=== PATIENT | female | born 1945 | race Hispanic/Latino ===

== ENCOUNTER 2019-08-06 14:58 | Inpatient (IN) | payer MEDICARE ==
[~2019-08-06] VITALS: Ht 157.5 cm; Wt 57.9 kg
[2019-08-06 20:06] VITALS: BP 111/61
--- NOTE | 2019-08-06 21:00 | NUR ---
PATIENT TRANSFER FROM [facility]. PATIENT HERE FOR CABG. PATIENT AOX3, GOOD, STABLE, DENIES ANY SHORTNESS OF BREATH AND OR CHEST PAIN. FAMILY AT BESIDE, CALL LIGHT WITH IN REACH. MD MORTENSEN MADE AWARE OF PATIENT ARRIVAL. NEW ORDERS RECEIVED WILL CARRY OUT.
[2019-08-06 23:11] LABS: HEMATOCRIT 36.3 % (36-48); MEAN CORPUSCULAR HEMOGLOBIN 30.9 pg (27.0-33.0); MEAN CORPUSCULAR HGB CONC 33.1 g/dL (32.0-36.0); MEAN CORPUSCULAR VOLUME 93.6 fL (79-99); PLATELET COUNT (AUTO) 125 K/uL (130-400); RED BLOOD CELL COUNT(AUTO) 3.88 MIL/uL (4.00-5.50); RED CELL DISTRIBUTION WIDTH 13.6 % (11.0-15.5); WHITE BLOOD COUNT (AUTO) 8.8 K/uL (4.8-10.8)
[2019-08-06 23:29] LABS: HEMOGLOBIN A1C 6.1 % (4.0-6.0)
[2019-08-06 23:31] LABS: INR 1.02 (0.85-1.15); PARTIAL THROMBOPLASTIN TIME 29.4 SEC (26.3-35.5); PROTHROMBIN TIME 10.7 SEC (9.6-11.6)
[2019-08-06 23:39] LABS: BILIRUBIN,TOTAL 0.7 mg/dL (0.2-1.0); CREATININE 0.7 mg/dL (0.5-1.5); POTASSIUM 3.4 mmol/L (3.5-5.1); TOTAL PROTEIN, SERUM 6.4 g/dL (6.0-8.3)
[2019-08-06 23:42] LABS: B-TYPE NATRIURETIC PEPTIDE 618 pg/mL (0-100)
[2019-08-06 23:44] LABS: TROPONIN I 1.18 ng/mL (0.00-0.06)
[2019-08-06 23:59] VITALS: BP 111/62
[2019-08-07] VITALS (58 sets, daily range): BP systolic 86–217; BP diastolic 38–215
[2019-08-07] MEDS ORDERED: NOREPINEPHRINE BITARTRATE 8 MG in DEXTROSE 5%-WATER 250 ML IV PRN (06:45)
[2019-08-07] MEDS ORDERED: AMINOCAPROIC ACID 15,000 MG in SODIUM CHLORIDE 0.9% 500ML 420 ML IV PRN (06:45)
[2019-08-07] MEDS ORDERED: EPINEPHRINE 10 MG in SODIUM CHLORIDE 0.9% 240 ML IV PRN (06:45)
[2019-08-07] MEDS ORDERED: POTASSIUM CHLORIDE 20 MEQ/100 ML BAG IV SCH (07:30)
[2019-08-07] MEDS ORDERED: LIDOCAINE HCL-MPF 1% 2ML VIAL IV SCH (07:30)
[2019-08-07] MEDS ORDERED: PAPAVERINE HCL 30 MG/ML 2ML VIAL ONE (07:32)
[2019-08-07] MEDS ORDERED: CEFAZOLIN SODIUM 1 GM VIAL ONE (07:32)
[2019-08-07] MEDS ORDERED: NITROGLYCERIN 50 MG/D5% WATER 1 BOT ONE (07:55)
[2019-08-07] MEDS ORDERED: POTASSIUM CHLORIDE 20MEQ/100ML 100 ML IV SCH (08:00)
[2019-08-07] MEDS ORDERED: LIDOCAINE HCL-MPF 1% 2ML VIAL IJ PRN (08:00)
--- NOTE | 2019-08-07 09:05 | NUR ---
TO O.R. VIA BED ACCOMPANIED BY HOLDING AREA STAFF AND FAMILY MEMBERS AT BEDSIDE. HOLDING AREA STAFF INFORMED OF PT. WITH LOOSE TEETH, VERBALIZED UNDERSTANDING AND WILL NOTIFY DR. RAYO. BELONGINGS TAKEN BY PT.'S FAMILY MEMBERS.
[2019-08-07] MEDS ORDERED: SODIUM CHLORIDE 0.9% 1000ML 1,000 ML IV ONE (09:12)
[2019-08-07] MEDS: CEFAZOLIN SODIUM 1 GM VIAL IVP PRN ×2 (09:24→09:55)
[2019-08-07] MEDS ORDERED: ESMOLOL HCL 10 MG/ML 10 ML VIAL ONE (09:39)
[2019-08-07] MEDS ORDERED: PROTAMINE SULFATE 10 MG/ML 25ML VIAL IV ONE (09:39)
[2019-08-07] MEDS ORDERED: PROPOFOL 10 MG/ML 20ML VIAL IV ONE (09:39)
[2019-08-07] MEDS ORDERED: ROCURONIUM 10MG/1ML SYR 10 MG/ML ML ONE (09:39)
[2019-08-07] MEDS ORDERED: EPINEPHRINE 1 MG/ML AMPULE ONE (09:39)
[2019-08-07] MEDS ORDERED: HEPARIN SODIUM 1000UNIT/ML 10ML VIAL ONE (09:39)
[2019-08-07] MEDS ORDERED: NOREPINEPHRINE BITARTRATE 1 MG/1 ML ML IV ONE (09:39)
[2019-08-07] MEDS ORDERED: AMINOCAPROIC ACID 250 MG/ML 20 ML VIAL IV ONE (09:39)
[2019-08-07] MEDS ORDERED: LIDOCAINE PF 2% 5ML ABBOJECT ONE (09:39)
[2019-08-07] MEDS ORDERED: ETOMIDATE 2 MG/ML 10 ML VIAL ONE (09:40)
[2019-08-07] MEDS ORDERED: FENTANYL CITRATE PF 50 MCG/1 ML 5ML AMP IV ONE ×3 (09:40→11:26)
[2019-08-07] MEDS ORDERED: GLYCOPYRROLATE 1 MG/5 ML SYRINGE ONE (09:43)
[2019-08-07] MEDS ORDERED: AMIODARONE HCL 50 MG/ML 3 ML VIAL ONE (09:43)
[2019-08-07 10:40] LABS: ABG BASE EXCESS -0.6 mmol/L (-2.0-3.0); ABG HCO3 23.6 mmol/L (21.0-28.0); ABG OXYGEN SATURATION 99.3 % (95.0-99.0); ABG PCO2 37 mmHg (32-45)
[2019-08-07] MEDS ORDERED: OCTYL 2-CYANOACRYLATE 1 EACH TP ONE (11:15)
[2019-08-07 11:38] LABS: ABG BASE EXCESS -0.3 mmol/L (-2.0-3.0); ABG HCO3 22.5 mmol/L (21.0-28.0); ABG OXYGEN SATURATION 98.8 % (95.0-99.0); ABG PCO2 30 mmHg (32-45)
[2019-08-07] MEDS ORDERED: SODIUM CHLORIDE 0.9% 500ML 500 ML IV SCH (11:40)
[2019-08-07] MEDS ORDERED: POTASSIUM CHLORIDE 20MEQ/100ML 200 ML IV ONE (11:40)
[2019-08-07] MEDS ORDERED: ALBUMIN (HUMAN) 5% 250 ML IV PRN (11:45)
[2019-08-07] MEDS ORDERED: SODIUM CHLORIDE 0.9% 250 ML IV PRN (11:45)
[2019-08-07] MEDS ORDERED: GLUCAGON 1MG KIT 1 MG ML IM PRN (11:45)
[2019-08-07] MEDS ORDERED: ACETAMINOPHEN 325 MG TAB PO PRN (11:45)
[2019-08-07] MEDS ORDERED: SODIUM CHLORIDE 0.9% 1000ML 1,000 ML IV SCH (11:45)
[2019-08-07] MEDS ORDERED: NITROGLYCERIN 50 MG/D5% WATER 250 BOT IV SCH (11:45)
[2019-08-07] MEDS ORDERED: MORPHINE SULFATE 2 MG/ML 1ML SYG IV PRN (11:45)
[2019-08-07] MEDS ORDERED: MORPHINE SULFATE 4 MG/1ML SYG IV PRN (11:45)
[2019-08-07] MEDS ORDERED: NOREPINEPHRINE 4MG/NS 250ML 250 ML IV PRN (11:45)
[2019-08-07] MEDS ORDERED: PROPOFOL 1000 MG/100 ML 100 ML IV PRN (11:45)
[2019-08-07] MEDS ORDERED: SODIUM CHLORIDE 0.9% 10 ML VIAL IVP PRN (11:45)
[2019-08-07] MEDS ORDERED: ACETAMINOPHEN 650 MG SUPPOSITORY RC PRN (11:45)
[2019-08-07] MEDS ORDERED: DEXTROSE 50%-WATER 50 ML DISP.SYRIN IV PRN (11:45)
[2019-08-07] MEDS ORDERED: TRAMADOL HCL 50 MG TABLET PO PRN ×2 (11:45)
[2019-08-07] MEDS ORDERED: POTASSIUM PHOS 15 mMOL+NS250ML 250 ML IV PRN (11:45)
[2019-08-07] MEDS ORDERED: ONDANSETRON HCL 4 MG/2 ML VIAL IV PRN (11:45)
[2019-08-07] MEDS ORDERED: AMINOCAPROIC ACID 15,000 MG in SODIUM CHLORIDE 0.9% 250 ML IV SCH (11:45)
[2019-08-07] MEDS ORDERED: EPINEPHRINE 10 MG in DEXTROSE 5%-WATER 250 ML IV PRN (11:45)
[2019-08-07] MEDS ORDERED: SODIUM BICARB 50MEQ 50ML VIAL ONE (11:57)
[2019-08-07] MEDS ORDERED: POTASSIUM CHLORIDE 20MEQ/100ML 100 ML IV ONE ×2 (11:58→11:59)
[2019-08-07 12:28] LABS: ABG BASE EXCESS -4.9 mmol/L (-2.0-3.0); ABG HCO3 19.1 mmol/L (21.0-28.0); ABG OXYGEN SATURATION 98.5 % (95.0-99.0); ABG PCO2 31 mmHg (32-45)
--- NOTE | 2019-08-07 12:46 | NUR ---
MAGALIE PLAN PATIENT DOWN FOR CABG. PENDING IA ENRIKE WILL CONTINUE TO FOLLOW. Addendum: 08/07/19 at 1247 by GLADYS RUSSELL RN CM Amended: Links added.
[2019-08-07 13:24] LABS: ABG BASE EXCESS -6.7 mmol/L (-2.0-3.0); ABG HCO3 17.8 mmol/L (21.0-28.0); ABG OXYGEN SATURATION 95.3 % (95.0-99.0); ABG PCO2 32 mmHg (32-45)
[2019-08-07 13:33] LABS: MEAN CORPUSCULAR HEMOGLOBIN 30.4 pg (27.0-33.0); MEAN CORPUSCULAR HGB CONC 33.1 g/dL (32.0-36.0); MEAN CORPUSCULAR VOLUME 91.9 fL (79-99); PLATELET COUNT (AUTO) 94 K/uL (130-400); RED BLOOD CELL COUNT(AUTO) 3.81 MIL/uL (4.00-5.50); RED CELL DISTRIBUTION WIDTH 14.6 % (11.0-15.5); WHITE BLOOD COUNT (AUTO) 15.6 K/uL (4.8-10.8)
--- NOTE | 2019-08-07 13:50 | NUR ---
ATTEMPTING TO OPEN EYES NODS HEAD "YES" WHEN ASKED IF SHE CAN HEAR ME. OPENED YES TO COMMAND. SMALL MOVEMENTS NOTED TO HANDS AND BILATERAL TOES ON COMMAND. ORIENTED TO TIME AND PLACE. WILL CONTINUE TO MONITOR.
[2019-08-07 13:53] LABS: CREATININE 0.7 mg/dL (0.5-1.5); MAGNESIUM 1.2 mg/dL (1.80-2.40); PHOSPHORUS 4.9 mg/dL (2.5-4.9)
[2019-08-07 13:59] LABS: INR 1.35 (0.85-1.15); PARTIAL THROMBOPLASTIN TIME 31.2 SEC (26.3-35.5)
[2019-08-07 14:04] LABS: POTASSIUM 2.9 mmol/L (3.5-5.1)
--- NOTE | 2019-08-07 14:30 | NUR ---
EASILY AROUSABLE. EYES OPEN TO VERBAL STIMULI. MOVING ALL 4 EXTREMITIES TO COMMAND. WILL CONTINUE TO WEAN VENT AND DRIPS PER CVR PROTOCOL
[2019-08-07 14:44] LABS: ABG BASE EXCESS 5.1 mmol/L (-2.0-3.0); ABG HCO3 28.6 mmol/L (21.0-28.0); ABG OXYGEN SATURATION 97.3 % (95.0-99.0); ABG PCO2 38 mmHg (32-45)
[2019-08-07] MEDS: MAGNESIUM 2GM PREMIX 50ML 50 ML IV PRN (16:41)
[2019-08-07] MEDS: SODIUM BICARB 50MEQ 50ML VIAL IV PRN ×2 (16:42→17:16)
[2019-08-07] MEDS: CEFAZOLIN SODIUM 1 GM VIAL IV SCH (16:42)
[2019-08-07] MEDS: POTASSIUM CHLORIDE 20MEQ/100ML 100 ML IV PRN ×4 (16:43→23:52)
[2019-08-07] MEDS: INSULIN REGULAR, HUMAN 3ML 100 UNIT in SODIUM CHLORIDE 0.9% 99 ML IV SCH ×2 (16:46)
[2019-08-07] MEDS: NOREPINEPHRINE BITARTRATE 8 MG/NS 250ML IV SCH ×2 (16:50)
[2019-08-07 17:04] LABS: ABG BASE EXCESS -1.5 mmol/L (-2.0-3.0); ABG HCO3 23.2 mmol/L (21.0-28.0); ABG OXYGEN SATURATION 97.1 % (95.0-99.0); ABG PCO2 39 mmHg (32-45)
[2019-08-07] MEDS: CALCIUM GLUCONATE 1 GM in SODIUM CHLORIDE 0.9% 50 ML IV PRN ×2 (20:03→22:16)
[2019-08-07] MEDS: FAMOTIDINE/PF 20 MG/2 ML VIAL IV SCH (20:49)
[2019-08-07] MEDS: ATORVASTATIN CALCIUM 40 MG TABLET PO SCH (20:50)
[2019-08-07] MEDS ORDERED: ATORVASTATIN CALCIUM 20 MG TABLET PO SCH (21:00)
[2019-08-07 21:51] LABS: ABG BASE EXCESS 5.7 mmol/L (-2.0-3.0); ABG HCO3 30.1 mmol/L (21.0-28.0); ABG OXYGEN SATURATION 97.8 % (95.0-99.0); ABG PCO2 43 mmHg (32-45)
[2019-08-07] MEDS ORDERED: ALBUMIN (HUMAN) 5% 250 ML IV ONE (23:18)
[2019-08-07 23:50] LABS: ABG BASE EXCESS 1.9 mmol/L (-2.0-3.0); ABG HCO3 25.4 mmol/L (21.0-28.0); ABG OXYGEN SATURATION 97.9 % (95.0-99.0); ABG PCO2 36 mmHg (32-45)
[2019-08-08] VITALS (68 sets, daily range): BP systolic 59–140; BP diastolic 31–96
[2019-08-08] MEDS: CEFAZOLIN SODIUM 1 GM VIAL IV SCH ×2 (00:58→08:35)
[2019-08-08 01:26] LABS: ABG BASE EXCESS 7.1 mmol/L (-2.0-3.0); ABG HCO3 31.8 mmol/L (21.0-28.0); ABG OXYGEN SATURATION 97.8 % (95.0-99.0); ABG PCO2 46 mmHg (32-45)
[2019-08-08] MEDS: NOREPINEPHRINE BITARTRATE 8 MG/NS 250ML IV SCH ×2 (02:44)
[2019-08-08 04:26] LABS: ABG BASE EXCESS 8.3 mmol/L (-2.0-3.0); ABG HCO3 30.4 mmol/L (21.0-28.0); ABG OXYGEN SATURATION 98.9 % (95.0-99.0); ABG PCO2 34 mmHg (32-45)
[2019-08-08 04:44] LABS: HEMATOCRIT 30.5 % (36-48); MEAN CORPUSCULAR HEMOGLOBIN 29.7 pg (27.0-33.0); MEAN CORPUSCULAR HGB CONC 33.4 g/dL (32.0-36.0); MEAN CORPUSCULAR VOLUME 88.7 fL (79-99); PLATELET COUNT (AUTO) 72 K/uL (130-400); RED BLOOD CELL COUNT(AUTO) 3.44 MIL/uL (4.00-5.50); RED CELL DISTRIBUTION WIDTH 15.9 % (11.0-15.5); WHITE BLOOD COUNT (AUTO) 14.6 K/uL (4.8-10.8)
[2019-08-08 04:57] LABS: INR 1.15 (0.85-1.15); PARTIAL THROMBOPLASTIN TIME 28.9 SEC (26.3-35.5)
[2019-08-08 05:04] LABS: CREATININE 0.8 mg/dL (0.5-1.5); MAGNESIUM 1.5 mg/dL (1.80-2.40); PHOSPHORUS 1.5 mg/dL (2.5-4.9); POTASSIUM 3.8 mmol/L (3.5-5.1)
[2019-08-08] MEDS: CALCIUM GLUCONATE 1 GM in SODIUM CHLORIDE 0.9% 50 ML IV PRN ×3 (05:48→21:03)
[2019-08-08] MEDS: MAGNESIUM 2GM PREMIX 50ML 50 ML IV PRN (05:48)
[2019-08-08] MEDS: POTASSIUM CHLORIDE 20MEQ/100ML 100 ML IV PRN (05:48)
--- NOTE | 2019-08-08 06:00 | NUR ---
EXTUBATION ATTEMPTS HAVE TRIED MULTIPLE TIMES TO WEAN PT OFF VENTILATOR PER PROTOCOL. PT RESPONDS TO VERBAL STIMULI, BUT DOES NOT FOLLOW COMMANDS. TIDAL VOLUMES ARE MET; O2 SATURATIONS ARE MAINTAINED, BUT PT DOES NOT BREATHE OVER SET RESPIRATORY RATE. HAVE ATTEMPTED TO MAINTAIN PT AWAKE, BUT PT RESPONDS FOR A FEW MINUTES AND CLOSES EYES.
[2019-08-08] MEDS ORDERED: PHARMACY COMMUNICATION MISC SCH (06:30)
[2019-08-08] MEDS: ASPIRIN 325MG EC TAB 325 MG TABLET.DR PO SCH (07:29)
--- NOTE | 2019-08-08 08:25 | NUR ---
PT IS RESPONSIVE AND FOLLOWS COMMANDS- I HAVE ATTEMPTED TO WEAN VENT TO RATE OF 4 PER PROTOCOL.SHE DOES NOT STAY AWAKE AND IS NOT OVERBREATHING VENT. SHE IS SOMNOLENT AND APNEIC. WILL CONTINUE TO TRY AND WEAN PER PROTOCOL. DAUGHTER Chanell ROBISON AT BEDSIDE. INFORMED OF CURRENT STATUS AND P.O.C... PT HEMODYNAMICALLY STABLE.
[2019-08-08] MEDS: FAMOTIDINE/PF 20 MG/2 ML VIAL IV SCH ×2 (08:35→21:02)
[2019-08-08] MEDS: FUROSEMIDE 10 MG/ML 2ML VIAL IV SCH ×2 (08:36→21:02)
[2019-08-08 08:56] LABS: ABG BASE EXCESS 7.5 mmol/L (-2.0-3.0); ABG OXYGEN SATURATION 98.9 % (95.0-99.0); ABG PCO2 40 mmHg (32-45)
[2019-08-08 09:00] LABS: ABG BASE EXCESS 5.9 mmol/L (-2.0-3.0); ABG HCO3 29.4 mmol/L (21.0-28.0); ABG OXYGEN SATURATION 97.8 % (95.0-99.0); ABG PCO2 39 mmHg (32-45)
--- NOTE | 2019-08-08 09:02 | NUR ---
PT RESP RATE DROPPED TO 4 AFTER REVIEWING ABG
--- NOTE | 2019-08-08 09:29 | NUR ---
PT MAINTAINING AIRWAY- HAS FREQUENT APNEA ALARMS , WAKES WHEN SHE HEARS THEM AND BREATHS ON HER OWN RATE OF 8-10
[2019-08-08 10:08] LABS: ABG BASE EXCESS 6.9 mmol/L (-2.0-3.0); ABG HCO3 30.1 mmol/L (21.0-28.0); ABG OXYGEN SATURATION 98.8 % (95.0-99.0); ABG PCO2 38 mmHg (32-45)
--- NOTE | 2019-08-08 10:22 | NUR ---
PT PLACED ON CPAP-DR MORTENSEN MADE AWARE- TOLERATING CPAP AT PRESENT TIME- WILL ASSESS AND CHECK ABG
--- NOTE | 2019-08-08 10:47 | NUR ---
PT COMFORTABLE- MAINTAINS AIRWAY- NO DYSPNEA
--- NOTE | 2019-08-08 11:28 | NUR ---
per INGA Rdz patient is not ready for skilled Physical Therapy Evaluation today.Patient still intubated. Addendum: 08/08/19 at 1129 by FITO ZAMUDIO, PT PT Amended: Links added.
--- NOTE | 2019-08-08 11:49 | NUR ---
DR MORTENSEN NOTIFIED AND GIVEN STATUS UPDATE ON ABG/VENT STATUS/VS/ INABILITY TO PERFORM WEANING PARAMETERS.. IABP NOW AT 1:2
--- NOTE | 2019-08-08 12:40 | NUR ---
PT CONTINUES TO BE ON CPAP. SHE IS RELUCTANT TO DO ANY PHYSICAL ACTIVITIES. SHE NODS YES AND NO. 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 WHEN I ASK HER TO DO HAND GRASP OF LEFT HAND SHE CAN BARELY MOVE HER FINGERS AND NODS NO. SHE IS ALSO WEAKER TO LEFT LEG/FOOT. OTHERWISE V/S STABLE. MOSTLY SOMNOLENT. IABP AT 1:2 TIMING. RESP RATE 14
[2019-08-08 14:04] LABS: ABG BASE EXCESS 4.3 mmol/L (-2.0-3.0); ABG HCO3 28.9 mmol/L (21.0-28.0); ABG OXYGEN SATURATION 97.8 % (95.0-99.0); ABG PCO2 44 mmHg (32-45)
--- NOTE | 2019-08-08 15:39 | NUR ---
PT EXPRESSES/GESTURES PAIN TO LEFT HAND WHEN I DO PASSIVE ROM. SHE STILL WILL NOT PERFORM HAND GRASP WITH LEFT HAND AND GRIMACES ANYTIME I TRY TO GET HER TO DO SO. SHE CAN AND DOES MOVE HER LEFT FOOT ALTHOUGH IT IS WEAK. DIFFICULT TO ASSESS MOTOR STRENGTH BECAUSE SHE WILL NOT PARTICIPATE. SHE EXHIBITS APPROPRIATE BEHAVIORS WHEN I WAKE HER . SHE IS NOT IN ANY RESPIRATORY DISTRESS . I AM WAITING FOR DR MORTENSEN TO ARRIVE TO ASSESS PT AND DETERMINE IF SHE WILL BE EXTUBATED. SHE WILL NOT PERFORM WEANING PARAMETERS SUFFICIENTLY.
--- NOTE | 2019-08-08 16:22 | NUR ---
DR MORTENSEN CALLED AND UPDATED ON PT STATUS-V/S/VENT/ABG/NEURO/IO'S PLAN IS TO WEAN/REMOVE IABP THEN EXTUBATE I HAVE PLACED IABP ON 1:3 RATIO ORDERED ABG COLLECTED
[2019-08-08 16:27] LABS: ABG BASE EXCESS 5.7 mmol/L (-2.0-3.0); ABG HCO3 31.1 mmol/L (21.0-28.0); ABG OXYGEN SATURATION 98.5 % (95.0-99.0); ABG PCO2 48 mmHg (32-45)
--- NOTE | 2019-08-08 16:45 | NUR ---
IABP CATHETER REMOVED BY JUSTEN VERDINPHYS THERAPIST OF DR MORTENSEN. I ASSUMED MANUAL PRESSURE . CATHETER REMOVED INTACT.
--- NOTE | 2019-08-08 17:15 | NUR ---
NO HEMATOMA OR BLEEDING TO LEFT GROIN CATH SITE. ELASTOPLAST PRESSURE DRESSING APPLIED . DISTAL LEFT PEDAL PULSES STRONG.
--- NOTE | 2019-08-08 17:20 | NUR ---
PT EXTUBATED PER DR MORTENSEN VERBAL ORDERS.HE ROUNDED WHILE I WAS APPLYING GROIN PRESSURE.
[2019-08-08] MEDS: INSULIN REGULAR, HUMAN 3ML 100 UNIT in SODIUM CHLORIDE 0.9% 99 ML IV SCH ×2 (18:34)
--- NOTE | 2019-08-08 18:37 | NUR ---
PT TOLERATING BIPAP- NO HEMATOMA OR BLEEDING TO LEFT GROIN CATH SITE. STRONG PALPABLE LEFT PEDAL PULSE
--- NOTE | 2019-08-08 19:22 | NUR ---
PT TRANSFERRED TO ROOM 219-HAND OFF REPORT GIVEN TO MATT XIONG
[2019-08-08 19:27] LABS: ABG BASE EXCESS 5.9 mmol/L (-2.0-3.0); ABG HCO3 30.9 mmol/L (21.0-28.0); ABG OXYGEN SATURATION 98.2 % (95.0-99.0); ABG PCO2 46 mmHg (32-45)
[2019-08-08] MEDS: ATORVASTATIN CALCIUM 40 MG TABLET PO SCH (21:02)
[2019-08-09] VITALS (65 sets, daily range): BP systolic 81–130; BP diastolic 40–69
[2019-08-09 04:46] LABS: HEMATOCRIT 30.8 % (36-48); MEAN CORPUSCULAR HEMOGLOBIN 29.9 pg (27.0-33.0); MEAN CORPUSCULAR HGB CONC 32.5 g/dL (32.0-36.0); MEAN CORPUSCULAR VOLUME 91.9 fL (79-99); PLATELET COUNT (AUTO) 80 K/uL (130-400); RED BLOOD CELL COUNT(AUTO) 3.35 MIL/uL (4.00-5.50); RED CELL DISTRIBUTION WIDTH 15.9 % (11.0-15.5); WHITE BLOOD COUNT (AUTO) 22.5 K/uL (4.8-10.8)
[2019-08-09 05:06] LABS: CREATININE 0.8 mg/dL (0.5-1.5); POTASSIUM 4.3 mmol/L (3.5-5.1)
[2019-08-09 07:34] LABS: MAGNESIUM 1.8 mg/dL (1.80-2.40); PHOSPHORUS 4.8 mg/dL (2.5-4.9)
[2019-08-09] MEDS: FAMOTIDINE/PF 20 MG/2 ML VIAL IV SCH ×2 (07:42→20:52)
[2019-08-09 07:43] LABS: ABG BASE EXCESS 7.9 mmol/L (-2.0-3.0); ABG OXYGEN SATURATION 98.3 % (95.0-99.0); ABG PCO2 43 mmHg (32-45)
[2019-08-09] MEDS: MAGNESIUM 2GM PREMIX 50ML 50 ML IV PRN (07:50)
[2019-08-09] MEDS ORDERED: AMIODARONE HCL 150 MG in DEXTROSE 5%-WATER 100 ML IV SCH (08:15)
[2019-08-09] MEDS ORDERED: AMIODARONE HCL 900 MG in DEXTROSE 5%-WATER 500 ML IV SCH (08:15)
[2019-08-09] MEDS: FUROSEMIDE 20 MG TABLET PO SCH (09:00)
[2019-08-09] MEDS: ASPIRIN 325MG EC TAB 325 MG TABLET.DR PO SCH (09:00)
[2019-08-09] MEDS: METOPROLOL TARTRATE 25 MG TAB PO SCH ×2 (09:00→20:53)
[2019-08-09] MEDS: CALCIUM GLUCONATE 1 GM in SODIUM CHLORIDE 0.9% 50 ML IV PRN (09:23)
[2019-08-09] MEDS: FUROSEMIDE 10 MG/ML 2ML VIAL IV SCH (13:53)
--- NOTE | 2019-08-09 18:09 | NUR ---
DC PLAN VISITED WITH PATIENT. WENT OVER THE INFO FOR IRU. GAVE LIST AND CMS INFO. SAID WILL GO VISIT PATIENT. EXPLAINED THAT THEY MIGHT NOT BE ABLE TO GO [place] [facility] [place]CE THEY ARE GETTING RE CERTIFIED AND WANT CORE PATIENTS. THEY MIGHT NEED TO GO WITH A PLAN B. OTHER IRU OR SNF. SAID THEY REFUSE SNF BECAUSE GRANDPARENTS IN ONE. CM WILL CONTINUE TO FOLLOW. POA IN CHART. Addendum: 08/09/19 at 1821 by GLADYS RUSSELL RN CM Amended: Links added.
[2019-08-09] MEDS: ATORVASTATIN CALCIUM 40 MG TABLET PO SCH (20:52)
[2019-08-10] VITALS (51 sets, daily range): BP systolic 84–125; BP diastolic 34–73
[2019-08-10] MEDS: FUROSEMIDE 10 MG/ML 2ML VIAL IV SCH (01:59)
[2019-08-10 04:25] LABS: MEAN CORPUSCULAR HGB CONC 32.4 g/dL (32.0-36.0); MEAN CORPUSCULAR VOLUME 92.5 fL (79-99); PLATELET COUNT (AUTO) 88 K/uL (130-400); WHITE BLOOD COUNT (AUTO) 17.2 K/uL (4.8-10.8)
[2019-08-10 04:32] LABS: POTASSIUM 3.9 mmol/L (3.5-5.1)
[2019-08-10] MEDS: POTASSIUM CHLORIDE 20MEQ/100ML 100 ML IV PRN (06:02)
[2019-08-10] MEDS ORDERED: PHARMACY COMMUNICATION MISC SCH ×2 (07:00→10:15)
[2019-08-10] MEDS: INSULIN HUMULIN R 100 UNIT/ML 3ML SQ SCH ×4 (07:30→21:00)
[2019-08-10] MEDS: METOPROLOL TARTRATE 25 MG TAB PO SCH ×2 (09:00→21:00)
[2019-08-10] MEDS: ENOXAPARIN SODIUM 30 MG/0.3 ML SQ SCH (09:21)
[2019-08-10] MEDS: FAMOTIDINE/PF 20 MG/2 ML VIAL IV SCH ×2 (09:21→21:14)
--- NOTE | 2019-08-10 09:30 | NUR ---
DYSPHAGIA EVAL COMPLETED. -S/S OF ASPIRATION. RECOMMEND FINELY CHOPPED, THIN LIQUIDS; PILLS WHOLE WITH LIQUIDS. Addendum: 08/10/19 at 1255 by NANCY JONES, [facility] Amended: Links added.
[2019-08-10] MEDS: AMIODARONE HCL 200 MG TABLET PO SCH ×2 (10:36→21:14)
[2019-08-10] MEDS: ASPIRIN 325MG EC TAB 325 MG TABLET.DR PO SCH (10:37)
[2019-08-10] MEDS: ACETAMINOPHEN 325 MG TAB PO PRN (15:36)
[2019-08-10] MEDS: ATORVASTATIN CALCIUM 40 MG TABLET PO SCH (21:14)
[2019-08-11] VITALS (13 sets, daily range): BP systolic 87–128; BP diastolic 36–67
[2019-08-11 04:21] LABS: HEMATOCRIT 25.9 % (36-48); MEAN CORPUSCULAR HEMOGLOBIN 30.2 pg (27.0-33.0); MEAN CORPUSCULAR HGB CONC 32.4 g/dL (32.0-36.0); MEAN CORPUSCULAR VOLUME 93.2 fL (79-99); PLATELET COUNT (AUTO) 98 K/uL (130-400); RED BLOOD CELL COUNT(AUTO) 2.78 MIL/uL (4.00-5.50); RED CELL DISTRIBUTION WIDTH 14.1 % (11.0-15.5); WHITE BLOOD COUNT (AUTO) 9.6 K/uL (4.8-10.8)
[2019-08-11 04:32] LABS: CREATININE 0.8 mg/dL (0.5-1.5); POTASSIUM 3.8 mmol/L (3.5-5.1)
[2019-08-11] MEDS ORDERED: LIDOCAINE HCL-MPF 1% 2ML VIAL ONE (04:45)
[2019-08-11] MEDS: POTASSIUM CHLORIDE 20MEQ/100ML 100 ML IV PRN (05:37)
[2019-08-11] MEDS: INSULIN HUMULIN R 100 UNIT/ML 3ML SQ SCH ×4 (06:40→21:00)
[2019-08-11] MEDS: FAMOTIDINE/PF 20 MG/2 ML VIAL IV SCH ×2 (08:11→21:49)
[2019-08-11] MEDS: AMIODARONE HCL 200 MG TABLET PO SCH ×2 (08:11→21:49)
[2019-08-11] MEDS: MIDODRINE HCL 5 MG TABLET PO SCH ×3 (08:11→21:50)
[2019-08-11] MEDS: ASPIRIN 325MG EC TAB 325 MG TABLET.DR PO SCH (08:11)
[2019-08-11] MEDS: ENOXAPARIN SODIUM 30 MG/0.3 ML SQ SCH (08:12)
[2019-08-11] MEDS ORDERED: POTASSIUM CHLORIDE 10% ELIXIR 20 MEQ/15 ML UDCUP PO PRN (08:30)
[2019-08-11] MEDS ORDERED: POTASSIUM CHLORIDE 20 MEQ ERTAB PO PRN (08:30)
[2019-08-11] MEDS ORDERED: FUROSEMIDE 20 MG TABLET ONE (08:38)
[2019-08-11] MEDS: FUROSEMIDE 20 MG TABLET PO SCH ×2 (08:39→17:00)
[2019-08-11] MEDS: METOPROLOL TARTRATE 25 MG TAB PO SCH ×2 (09:00→21:55)
--- NOTE | 2019-08-11 10:53 | NUR ---
FOLLOW UP COMPLETED. PATIENT TOLERATING P.O. DIET OF FINELY CHOPPED, THIN LIQUIDS AT THIS TIME. PATIENT WITH NO OVERT S/S OF ASPIRATION DURING BREAKFAST. RECOMMEND CONTINUED DIET MODIFICATIONS AT THIS TIME. RANGE MANAGEMENT SPECIALIST COORDINATED WITH NURSE HENRY. Addendum: 08/11/[address]ANDO Amended: Links added.
--- NOTE | 2019-08-11 20:00 | NUR ---
ASSESSMENT PT QUIETLY IN BED WITH EYES CLOSED. PT DENIES ANY PAIN AT PRESENT. PT INSTRUCTED TO NOTIFY RN IF PAIN OCCURS AND RN WILL CONTINUE TO MONITOR. BEDSIDE MONITOR PARAMETERS REVIEWED AND ADJUSTED, CALL BECERRA REVIEWED AND WITHIN REACH. ASSESSMENT COMPLETED, SEE FLOW SHEET.
[2019-08-11] MEDS: ATORVASTATIN CALCIUM 40 MG TABLET PO SCH (21:49)
[2019-08-12] VITALS (7 sets, daily range): BP systolic 98–119; BP diastolic 48–61
--- NOTE | 2019-08-12 04:28 | NUR ---
TRANSFER PT TRANSFERRED TO ROOM 226. ALL PERSONAL BELONGINGS WITH PT. REPORT GIVEN TO GAUDENCIO XIONG. ENDORSED TO Adam/Carmen JOHNSON
--- NOTE | 2019-08-12 06:24 | NUR ---
MELGAR DISCONTINUED. 37ML IN MELGAR. PT DENIES ANY PAIN OR DISCOMFORT.
[2019-08-12] MEDS: INSULIN HUMULIN R 100 UNIT/ML 3ML SQ SCH ×4 (06:55→21:00)
[2019-08-12] MEDS: AMIODARONE HCL 200 MG TABLET PO SCH ×2 (09:30→21:10)
[2019-08-12] MEDS: ASPIRIN 325MG EC TAB 325 MG TABLET.DR PO SCH (09:30)
[2019-08-12] MEDS: METOPROLOL TARTRATE 25 MG TAB PO SCH ×2 (09:30→21:00)
[2019-08-12] MEDS: FUROSEMIDE 20 MG TABLET PO SCH ×2 (09:31→17:25)
[2019-08-12] MEDS: MIDODRINE HCL 5 MG TABLET PO SCH ×3 (09:31→21:10)
[2019-08-12] MEDS: FAMOTIDINE/PF 20 MG/2 ML VIAL IV SCH ×2 (09:34→21:11)
[2019-08-12] MEDS: ENOXAPARIN SODIUM 30 MG/0.3 ML SQ SCH (09:40)
--- NOTE | 2019-08-12 10:17 | NUR ---
DR. DOLAN IN ROOM SPEAKING WITH PT. AND PT.'S GRANDSON AT BEDSIDE RE:PLAN OF CARE. QUESTIONS ANSWERED BY DR. DOLAN.
--- NOTE | 2019-08-12 16:27 | NUR ---
MAGALIE PLAN MEL FOR [facility] SIGNED. INFO FAXED. ENRIKE WILL CONTINUE TO FOLLOW. Addendum: 08/12/19 at 1628 by GLADYS RUSSELL RN CM Amended: Links added.
[2019-08-12] MEDS ORDERED: FUROSEMIDE 20 MG TABLET ONE (17:06)
--- NOTE | 2019-08-12 19:17 | NUR ---
PACER WIRES CLIPPED ORDERED.
[2019-08-12] MEDS: ATORVASTATIN CALCIUM 40 MG TABLET PO SCH (21:10)
--- NOTE | 2019-08-13 00:15 | NUR ---
PT IS AWAKE AND HALLUCINATING. GRANDSON AT BEDSIDE AND DAUGHTER OF PATIENT ON PHONE. PATIENT AAOX3 AND SETTLED DOWN AND FELL ASLEEP.
--- NOTE | 2019-08-13 04:05 | NUR ---
BLOOD PRESSURE DIANE PCP NOTIFIED ME OF PTS B/P 88/47, ASYMPTOMATIC. HISTORY OF VITALS HAVE BEEN LOW SINCE HER STAY HERE IN 2ND FLOOR. GRANDSON AT BEDSIDE. PT AWAKE AND ALERT. DENIES ANY DISCOMFORT OR PAIN.
[2019-08-13 04:08] VITALS: BP 88/47
[2019-08-13] MEDS: INSULIN HUMULIN R 100 UNIT/ML 3ML SQ SCH ×4 (05:37→20:18)
[2019-08-13 08:09] VITALS: BP 96/51
--- NOTE | 2019-08-13 10:56 | NUR ---
PT NOTE: PATIENT PRESENTS WITH IMPROVED MOBILITY TO LLE NOTED BY ABILITY TO PERFORM SEATED LAQ AT EOB X10 REPS ACTIVELY. PATIENT REQUIRES MOD ASSISTX2 FOR TRANSFERS AND SAFE AMBULATION, SECONDARY TO DIFFICULTY MAINTAINING BALANCE AND UPRIGHT POSTURE. PATIENT AMBULATED 35FT THIS AM WITH MOD ASSISTX2 FOR SAFETY AND SUPPORT, THIS IS A POSITIVE DEVELOPMENT. PATIENT WILL BENEFIT FROM CONTINUED PT TREATMENT PRIOR TO D/C HOME TO [facility] IMPROVED TRANSFERS AND GAIT QUALITY. Addendum: 08/13/19 at 1323 by RENATO CASTRO PT Amended: Links added.
[2019-08-13] MEDS: ENOXAPARIN SODIUM 30 MG/0.3 ML SQ SCH (11:06)
[2019-08-13] MEDS: FAMOTIDINE/PF 20 MG/2 ML VIAL IV SCH ×2 (11:06→20:18)
[2019-08-13] MEDS: MIDODRINE HCL 5 MG TABLET PO SCH ×3 (11:07→20:18)
[2019-08-13] MEDS: AMIODARONE HCL 200 MG TABLET PO SCH ×2 (11:07→20:18)
[2019-08-13] MEDS: ASPIRIN 325MG EC TAB 325 MG TABLET.DR PO SCH (11:07)
[2019-08-13] MEDS: METOPROLOL TARTRATE 25 MG TAB PO SCH ×2 (11:08→20:17)
[2019-08-13] MEDS ORDERED: FUROSEMIDE 20 MG TABLET ONE (11:11)
[2019-08-13] MEDS: FUROSEMIDE 20 MG TABLET PO SCH ×2 (11:12→16:44)
[2019-08-13 11:50] VITALS: BP 101/53
--- NOTE | 2019-08-13 15:00 | NUR ---
DC PLAN [facility] CALLED SAID THEY WILL NOT BE ABLE TO TAKE PATIENT. LET PATIENT AND FAMILY KNOW. AFTER DISCUSSION [facility] EXPLAINED THAT WE NEEDED TO SUBMIT TO THE OTHER FACILITY IF THAT WAS GOING TO BE THE PLAN. SAID THAT THEY WERE TOLD THAT PATIENT MIGHT HAVE HAD A STROKE AND NURSE WOULD LET MD KNOW FOR POSSIBLE WORK UP. SAID PATIENT HAVING SOME LEFT SIDED WEAKNESS AND THAT PATIENT HAS BEEN SEEING THINGS. EXPLAINED THAT WE HAD TALKED TO MD AND NURSE TO SEE IF THEY HAD HEARD ABOUT POSSIBLE STROKE SAID NO THEY HAD NOT AND DID NOT BELIEVE PATIENT HAD ONE. NO ORDERS FOR TESTING TO R/O. SAID THEY DO NOT FEEL SAFE TAKING PATIENT HOME WITH OUT KNOWING IF THEY COULD HAVE HAD A STROKE WANT AT LEAST A CT OF HEAD. LET NURSE, CM DIRECTOR AND BRICK AND BLOCKER AID LABOR KNOW OF FAMILY CONCERNS. SINCE [facility] SAID FAMILY OKAY WITH STR SINCE ITS CLOSE TO HOME. INFO SENT. REP NOTIFIED. PENDING EVAL. Addendum: 08/13/19 at 1507 by GLADYS RUSSELL RN CM Amended: Links added.
[2019-08-13 16:00] VITALS: BP 105/54
[2019-08-13 19:00] VITALS: BP 106/52
[2019-08-13] MEDS: ATORVASTATIN CALCIUM 40 MG TABLET PO SCH (20:17)
[2019-08-13 23:00] VITALS: BP 128/68
[2019-08-14 04:00] VITALS: BP 102/50
[2019-08-14 08:00] VITALS: BP 107/54
--- NOTE | 2019-08-14 08:45 | NUR ---
AM ASSESSMENT PT LAYING IN BED, HOB ELEVATED 30 DEGREES, RESTING. FAMILY @ BEDSIDE. A/O X 3. NO SOB. NO DISTRESS NOTED. DENIES CHEST PAIN OR DISCOMFORT. DENIES PALPITATIONS. DENIES INCISIONAL PAIN. TELE: SR. DENIES N/V AND/OR DIARRHEA. STERNAL INCISION DSG DRY & INTACT. NO DRAINAGE NOTED. BILATERAL LEG INCISIONS WELL APPROX, NO DRAINAGE NOTED. STERNAL PRECAUTIONS REINFORCED. IS IMPORTANCE & PURPOSE REVIEWED. UP W/ASSISTANCE. INSTRUCTED TO CALL FOR ASSISTANCE. CALL HERNAN W/IN REACH.
[2019-08-14] MEDS ORDERED: FAMOTIDINE 20MG TAB 20 MG TAB PO SCH (09:00)
[2019-08-14] MEDS: ENOXAPARIN SODIUM 30 MG/0.3 ML SQ SCH (09:20)
[2019-08-14] MEDS: MIDODRINE HCL 5 MG TABLET PO SCH ×2 (09:21→13:10)
[2019-08-14] MEDS: AMIODARONE HCL 200 MG TABLET PO SCH (09:21)
[2019-08-14] MEDS: ASPIRIN 325MG EC TAB 325 MG TABLET.DR PO SCH (09:21)
[2019-08-14] MEDS: METOPROLOL TARTRATE 25 MG TAB PO SCH (09:21)
[2019-08-14] MEDS ORDERED: FUROSEMIDE 20 MG TABLET ONE (09:22)
[2019-08-14] MEDS: FUROSEMIDE 20 MG TABLET PO SCH ×2 (09:23→17:16)
--- NOTE | 2019-08-14 11:35 | NUR ---
DC PLAN VISITED WITH PATIENT AND FAMILY WENT OVER PLAN. PATIENT PNDG ACCEPTANCE TO STR. SPOKE TO YOANA THEY ARE JUST WAITING FOR THE CT RESULTS. FAXED TO FACILITY AND LET YOANA KNOW OF RESULTS. SAID SHE WOULD CALL ME BACK WITH MOT INFO. MOT STARTED IN CHART. PATIENT NOT ON 02 AND AMBULATING SPOKE TO FAMILY REGARDING TRANSPORT. SAID OKAY TO TRANSPORT VIA PRIVATE VEHICLE GOING TO GET VAN FROM OTHER FAMILY MEMBER. LET NURSE KNOW OF PLAN. CALLED FOR CHART TO BE COPIED. Addendum: 08/14/19 at 1137 by GLADYS RUSSELL RN CM Amended: Links added.
[2019-08-14] MEDS: INSULIN HUMULIN R 100 UNIT/ML 3ML SQ SCH ×2 (12:06→15:46)
[2019-08-14 12:11] VITALS: BP 111/58
[2019-08-14] MEDS: ACETAMINOPHEN 325 MG TAB PO PRN (13:39)
[2019-08-14] MEDS ORDERED: LACTULOSE 20 GM/30 ML UDCUP PO PRN (13:45)
--- NOTE | 2019-08-14 14:53 | NUR ---
[facility].
--- NOTE | 2019-08-14 14:57 | NUR ---
DISCHARGE TELEPHONE REPORT GIVEN TO LORIE HERNANDEZ RN
--- NOTE | 2019-08-14 14:59 | NUR ---
NUTRITION EDUCATION TRELL provided Post-CABG nutrition education to Pt and daughter/primary caregiver. TRELL provided reference materials and handouts. pt and caregiver verbalized understanding. RD to continue to monitor. Addendum: 08/14/19 at [address] Amended: Links added.
--- NOTE | 2019-08-14 15:05 | NUR ---
TRELL SCREEN - LOS X 8 Pt admitted for CAD. Pt s/p CABG. RD provided post CABG nutrition education to Pt and family. Pt tolerating current Heart healthy, CVR diet order. Recommend to continue current diet order. Pt LBM 08/06/19 as per EMR;Recommend stool softener or laxative as medically feasible. RD to continue to monitor. Please notify RD as additional nutrition concerns arise. thank you. Addendum: 08/14/19 at [address] Amended: Links added.
--- NOTE | 2019-08-14 15:25 | NUR ---
DISCHARGE VERBAL & WRITTEN DISCHARGE INSTRUCTIONS REVIEWED & GIVEN TO PT & FAMILY. QUESTIONS ENCOURAGED & CLARIFIED. PROPER CARE & ACTIVITY AFTER CABG REVIEWED. INFORMED MEDREC FAXED TO [facility]. STERNAL PRECAUTIONS & IS PURPOSE REINFORCED. TELE RYNE REMOVED. IV DC'D CHEST TUBE SUTURES X 2 REMOVED. STERI STRIPS APPLIED. PT'S LAST BM RECORDED & PER FAMILY 08/06/2019. PT GIVEN LACTULOSE, PENDING TO HAVE BM. FAMILY TO GATHER PERSONAL BELONGINGS.
[2019-08-14 16:19] VITALS: BP 105/52
--- NOTE | 2019-08-14 18:05 | NUR ---
DISCHARGE PT HAD BM. FAMILY TO GET PT READY TO TRANSFER IN PRIVATE VEHICLE TO [facility].
--- NOTE | 2019-08-14 18:25 | NUR ---
DISCHARGE PT TAKEN TO PRIVATE VEHICLE VIA WC BY Glory WARREN PCP, ACCOMPANIED BY FAMILY. NO DISTRESS NOTED.
== END 2019-08-14 18:25 | DRG 235 ==
LOC: 2BH 18:55 → 2DH 19:51 → 2CV 08-07 09:30 → 2CH 08-08 19:09 → 2DH 08-12 03:05
PROVIDERS: ADMIT Thoracic Surgery (Cardiothoracic Vascular Surgery); ATTEND Thoracic Surgery (Cardiothoracic Vascular Surgery)
PROC: 5A02210 Assistance with Cardiac Output using Balloon Pump, Continuous (ICD-10-PCS; 2019-08-07)
PROC: 04HY32Z Insertion of Monitoring Device into Lower Artery, Percutaneous Approach (ICD-10-PCS; 2019-08-07)
PROC: 021209W Bypass Coronary Artery, Three Arteries from Aorta with Autologous Venous Tissue, Open Approach (ICD-10-PCS; principal; 2019-08-07 09:40)
PROC: 06BQ4ZZ Excision of Left Saphenous Vein, Percutaneous Endoscopic Approach (ICD-10-PCS; 2019-08-07 09:40)
PROC: 30233N1 Transfusion of Nonautologous Red Blood Cells into Peripheral Vein, Percutaneous Approach (ICD-10-PCS; 2019-08-08)
PROC: 5A09357 Assistance with Respiratory Ventilation, Less than 24 Consecutive Hours, Continuous Positive Airway Pressure (ICD-10-PCS; 2019-08-08)
PROC: 5A09357 Assistance with Respiratory Ventilation, Less than 24 Consecutive Hours, Continuous Positive Airway Pressure (ICD-10-PCS; 2019-08-09)
PROC: 5A09357 Assistance with Respiratory Ventilation, Less than 24 Consecutive Hours, Continuous Positive Airway Pressure (ICD-10-PCS; 2019-08-10)
DX: I25.10 Atherosclerotic heart disease of native coronary artery without angina pectoris (principal); I50.31 Acute diastolic (congestive) heart failure; E78.00 Pure hypercholesterolemia, unspecified; E78.5 Hyperlipidemia, unspecified; I48.91 Unspecified atrial fibrillation; I95.1 Orthostatic hypotension; M19.90 Unspecified osteoarthritis, unspecified site; R09.02 Hypoxemia; Z79.899 Other long term (current) drug therapy
CPT/HCPCS: 36415; 70450; 71045; 80048; 80053; 80061; 82330; 82435; 82550; 82803; 82947; 82948; 83036; 83605; 83735; 83874; 83880; 84100; 84132; 84295; 84484; 85018; 85027; 85347; 85610; 85730; 86850; 86900; 86901; 86922; 92610; 93005; 93880; 94002; 94003; 94010; 94150; 94660; 97039; A4357; A7048; G0378; J0171; J0282; J0610; J0690; J1644; J1650; J1815; J1940; J2001; J2440; J2704; J2720; J3010; J3475; J3480; J3490; J7030; J7040; J7060; P9016; P9045